=== PATIENT | female | born 1990 | race Two or more races ===

== ENCOUNTER 2016-10-20 11:01 | Emergency (ER) | payer MEDICAID ==
[~2016-10-20] VITALS: Ht 170.2 cm; Wt 90.7 kg
--- NOTE | 2016-10-20 11:43 | NUR ---
PT BIB SELF C/O RLQ ABD PAIN X1 WK WITH HEMATURIA AND DYSURIA X3 DAYS. PT REPORTS SHE WENT TO HER PMD LAST WEEK, GIVEN DX OF "DIVERTICULITIS". REPORTS FEVER AND CHILLS WITH 102 FEVER YESTERDAY. AFEBRILE NOW, HOWEVER PT TOOK 2 TYLENOL AT 1000 TODAY. SKIN WARM NONDIAPHORETIC. RESP EVEN UNLABORED. AMBULATORY WITH STEADY GAIT. DENIES N/V/D. IN ER BED 14 ON MONITOR.
[2016-10-20 12:21] LABS: APPEARANCE,URINE Clear (CLEAR); BILIRUBIN,URINE Negative (NEGATIVE); BLOOD, URINE Small Ery/uL (NEGATIVE); COLOR,URINE Yellow (YELLOW); KETONES,URINE Negative (NEGATIVE); LEUKOCYTE ESTERASE ,URINE Trace (NEGATIVE); NITRITE, URINE Negative (NEGATIVE); PH,URINE 7.5 (5.0-8.0); PROTEIN,URINE Negative (NEGATIVE); UGLUCOSE Negative (NEGATIVE); UROBILINOGEN,URINE 0.2 EU/dL (0.2)
[2016-10-20 12:25] LABS: PREGNANCY TEST URINE QUAL NEGATIVE (NEGATIVE)
[2016-10-20 12:40] LABS: ADD URINE CULTURE NO; BACTERIA,URINE FEW /HPF (None Seen); SQUAMOUS EPITHELIAL CELL,UR MODERATE /HPF (None Seen)
[2016-10-20] MEDS ORDERED: MORPHINE SULFATE INJ 2 MG/ML DISP.SYRIN IV ONE (13:00)
[2016-10-20] MEDS ORDERED: ONDANSETRON HCL/PF 4 MG/2 ML VIAL IVP ONE (13:00)
[2016-10-20] MEDS ORDERED: IV NS 0.9% 1,000 ML BAG IV ONE (13:00)
[2016-10-20 13:01] LABS: BASOPHILS % (AUTO) 0.6 % (0.0-2.0); EOSINOPHILS # (AUTO) 0.2 /CMM (0.0-0.7); HEMATOCRIT 34 % (33-45); HEMOGLOBIN 11.5 g/dL (11.5-14.8); LYMPHOCYTES # (AUTO) 2.2 /CMM (0.8-4.8); LYMPHOCYTES % (AUTO) 46.2 % (20.0-44.0); MEAN CORPUSCULAR HEMOGLOBIN 30 PG (26.0-33.0); MEAN CORPUSCULAR HGB CONC 34 g/dl (31.0-36.0); MEAN CORPUSCULAR VOLUME 88 fL (82-100); MONOCYTES # (AUTO) 0.3 /CMM (0.1-1.30); MONOCYTES % (AUTO) 6.6 % (2.0-12.0); NEUTROPHILS % (AUTO) 42.6 % (43.0-81.0); PLATELET COUNT (AUTO) 347 /CMM (150-450); RDW COEFFICIENT OF VARIATION 12.8 (11.5-15.0); RED BLOOD CELL COUNT(AUTO) 3.82 MIL/uL (4.0-5.2); WHITE BLOOD COUNT (AUTO) 4.7 K/uL (4.3-11.0)
[2016-10-20] MEDS ORDERED: IV SET PRIMARY 1 EA INFUS.SET MC ONE (13:01)
[2016-10-20] MEDS ORDERED: IV NS 0.9% 1,000 ML ONE (13:01)
[2016-10-20] MEDS ORDERED: ONDANSETRON HCL/PF 4 MG/2 ML VIAL ONE (13:01)
[2016-10-20] MEDS ORDERED: MORPHINE SULFATE INJ 4 MG/ML DISP.SYRIN ONE (13:01)
[2016-10-20 13:11] LABS: CALCIUM, SERUM 8.5 mg/dL (8.5-10.1); CREATININE 0.5 mg/dL (0.6-1.3); POTASSIUM 3.9 mmol/L (3.5-5.1)
[2016-10-20 13:16] LABS: ALBUMIN 3.3 g/dL (3.4-5.0); BILIRUBIN,DIRECT 0.1 mg/dL (0.0-0.2); BILIRUBIN,TOTAL 0.1 mg/dL (0.2-1.0); TOTAL PROTEIN, SERUM 6.8 g/dL (6.4-8.2)
--- NOTE | 2016-10-20 13:17 | NUR ---
PT TRANSPORTED TO CT IN STABLE CONDITION
--- NOTE | 2016-10-20 14:05 | NUR ---
Patient is resting comfortably in bed with eyes closed. Easily aroused. VSS
[2016-10-20 15:47] VITALS: BP 128/97
--- NOTE | 2016-10-20 15:47 | NUR ---
Patient discharged to home in stable condition. Written and verbal after care instructions given. Patient verbalizes understanding of instruction. IV removed. Catheter intact and site benign. Pressure and 4x4 applied to site. No bleeding noted. AMBULATORY WITH STEADY GAIT.
== END 2016-10-20 15:48 | disposition home or self-care (01) ==
LOC: ER 11:03
DX: K59.00 Constipation, unspecified (principal); R10.32 Left lower quadrant pain; R30.0 Dysuria; J45.909 Unspecified asthma, uncomplicated; I45.6 Pre-excitation syndrome; Z88.6 Allergy status to analgesic agent; Z88.8 Allergy status to other drugs, medicaments and biological substances; Z90.89 Acquired absence of other organs; Z98.51 Tubal ligation status
CPT/HCPCS: 36415; 74176; 80048; 80076; 81001; 84703; 85025; 96361; 96374; 96375; 99285; A4606; J2270; J2405; J7030; Z7610; 81000-TC